=== PATIENT | female | born 1985 | race Caucasian/White ===

== ENCOUNTER 2017-11-10 14:28 | Outpatient (CLI) | payer MEDICAID ==
[2017-11-10 15:51] LABS: ALANINE AMINOTRANSFERASE 38 IU/L (13-69); ALBUMIN 3.4 g/dl (3.3-4.9); ALBUMIN/GLOBULIN RATIO 1.13; ALKALINE PHOSPHATASE 138 IU/L (42-121); ANION GAP 15 (8-16); ASPARTATE AMINO TRANSFERASE 35 IU/L (15-46); BILIRUBIN,INDIRECT 0.2 mg/dl (0-1.1); BILIRUBIN,TOTAL 0.2 mg/dl (0.2-1.3); BLOOD UREA NITROGEN 10 mg/dl (7-20); CALCIUM 9.1 mg/dl (8.4-10.2); CARBON DIOXIDE 23 mmol/L (21-31); CHLORIDE 105 mmol/L (97-110); CREATININE 0.79 mg/dl (0.44-1.00); GLUCOSE 80 mg/dl (70-220); POTASSIUM 3.9 mmol/L (3.5-5.1); SODIUM 139 mmol/L (135-144); TOTAL PROTEIN 6.4 g/dl (6.1-8.1)
== END 2017-11-10 16:50 | disposition home or self-care (01) ==
LOC: OBT 14:28 → L-D 14:31 → OBT 16:50
DX: O26.893 Other specified pregnancy related conditions, third trimester (principal); L29.8 Other pruritus; Z3A.38 38 weeks gestation of pregnancy
CPT/HCPCS: 76818; 80053

== ENCOUNTER 2017-11-12 16:00 | Inpatient (IN) | payer MEDICAID ==
[2017-11-12 16:57] LABS: ALANINE AMINOTRANSFERASE 114 IU/L (13-69); ALBUMIN 3.5 g/dl (3.3-4.9); ALKALINE PHOSPHATASE 151 IU/L (42-121); ANION GAP 14 (8-16); ASPARTATE AMINO TRANSFERASE 111 IU/L (15-46); BILIRUBIN,INDIRECT 0.3 mg/dl (0-1.1); BILIRUBIN,TOTAL 0.3 mg/dl (0.2-1.3); BLOOD UREA NITROGEN 8 mg/dl (7-20); CALCIUM 9.4 mg/dl (8.4-10.2); CARBON DIOXIDE 23 mmol/L (21-31); CHLORIDE 106 mmol/L (97-110); CREATININE 0.68 mg/dl (0.44-1.00); GLUCOSE 93 mg/dl (70-220); POTASSIUM 3.9 mmol/L (3.5-5.1); SODIUM 139 mmol/L (135-144); TOTAL PROTEIN 6.4 g/dl (6.1-8.1)
[2017-11-12] MEDS ORDERED: METHYLERGONOVINE 0.2 MG INJ IM (17:30)
[2017-11-12] MEDS ORDERED: OXYTOCIN 30 UNITS/LR 500 ML IV (17:30)
[2017-11-12] MEDS ORDERED: CARBOPROST 250 MCG INJ IM (17:30)
[2017-11-12] MEDS ORDERED: CEFAZOLIN 2 GM/50 ML (PMX) 50 ML IV (17:30)
[2017-11-12] MEDS ORDERED: MISOPROSTOL 200 MCG TAB PR (17:30)
[2017-11-12 18:21] LABS: ADD MAN DIFF? NO
[2017-11-12 18:23] LABS: WHITE BLOOD COUNT 14.3 10^3/ul (4.8-10.8)
[2017-11-12 18:23] LABS: BASOPHILS % 0.3 % (0.0-2.0); EOSINOPHILS % 0.3 % (0.0-7.0); HEMATOCRIT 34.7 % (37.0-47.0); HEMOGLOBIN 11.8 g/dl (12.0-16.0); LYMPHOCYTES # 1.9 10^3/ul (0.8-2.9); LYMPHOCYTES % 13.5 % (15.0-51.0); MEAN CORPUSCULAR HEMOGLOBIN 29.8 pg (29.0-33.0); MEAN CORPUSCULAR VOLUME 87.6 fl (82.0-101.0); MEAN PLATELET VOLUME 11.4 fl (7.4-10.4); MONOCYTES % 7.2 % (0.0-11.0); NEUTROPHIL # 11.2 10^3/ul (1.6-7.5); NEUTROPHILS % 78.1 % (39.0-77.0); PLATELET COUNT 145 10^3/UL (140-415); RED BLOOD COUNT 3.96 10^6/ul (4.20-5.40); RED CELL DISTRIBUTION WIDTH 14.3 % (11.5-14.5)
[2017-11-12 18:39] LABS: INR 0.93; PROTIME 12.6 Sec (11.9-14.9)
[2017-11-12 18:40] LABS: PARTIAL THROMBOPLASTIN TIME 31.8 Sec (25.0-35.0)
[2017-11-12 19:14] LABS: HEPATITIS B SURFACE ANTIGEN NEGATIVE (NEGATIVE)
[2017-11-13] MEDS: LACTATED RINGER'S 1,000 ML IV ×3 (00:38→23:27)
[2017-11-13] MEDS: DEXTROSE 5%-LR 1,000 ML IV ×2 (08:20→17:22)
[2017-11-13 11:35] LABS: URIC ACID 7.2 mg/dl (3.1-7.9)
[2017-11-13] MEDS: ONDANSETRON 4 MG INJ IV (18:24)
[2017-11-13] MEDS: CITRIC ACID/SODIUM CITRATE 15 ML CUP PO (18:25)
[2017-11-13] MEDS ORDERED: METOCLOPRAMIDE 10 MG INJ (18:37)
[2017-11-13] MEDS ORDERED: PHENYLephrine (100 MCG/ML) 5ML SYG (18:37)
[2017-11-13] MEDS ORDERED: OXYTOCIN 10 UNIT INJ (18:37)
[2017-11-13] MEDS ORDERED: morphine SULFATE/PF (10 MG/10 ML) INJ (18:37)
[2017-11-13] MEDS ORDERED: FENTAnyl 50 MCG/ML VIAL (18:37)
[2017-11-13 18:57] LABS: RAPID PLASMA REAGIN NONREACTIVE (NR)
[2017-11-13] MEDS ORDERED: ALBUTEROL 0.083% (NEB) 2.5 MG/3 ML AMP HHN (22:00)
[2017-11-13] MEDS ORDERED: MIDAZOLAM 1 MG/ML 2 ML INJ IV (22:00)
[2017-11-13] MEDS ORDERED: OXYCODONE/ACETAMINOPHEN (5/325) TAB PO ×2 (22:00)
[2017-11-13] MEDS ORDERED: HYDROmorphONE (0.2 MG/ML) 10ML SYG IV ×3 (22:00)
[2017-11-13] MEDS ORDERED: hydrALAzine 20 MG INJ IV (22:00)
[2017-11-13] MEDS ORDERED: LABETALOL HCL 20MG INJ IV (22:00)
[2017-11-13] MEDS ORDERED: ONDANSETRON 4 MG INJ IV ×2 (22:00)
[2017-11-13] MEDS ORDERED: EPHEDrine SULFATE 50 MG/5 ML SYG IV (22:00)
[2017-11-13] MEDS ORDERED: DIPHENHYDRAMINE 50 MG INJ IV (22:00)
[2017-11-13] MEDS ORDERED: morphine 2 MG INJ IV ×2 (22:00)
[2017-11-13] MEDS ORDERED: NALOXONE (0.4 MG/ML) INJ IV (22:00)
[2017-11-13] MEDS ORDERED: FENTAnyl 50 MCG/ML VIAL IV ×3 (22:00)
[2017-11-13] MEDS ORDERED: IPRATROPIUM (NEB) 0.5 MG/2.5 ML AMP HHN (22:00)
[2017-11-13] MEDS ORDERED: MEPERIDINE 25 MG INJ IV (22:00)
[2017-11-13] MEDS ORDERED: NALBUPHINE HCL (10 MG/1 ML) INJ IV (22:00)
[2017-11-13] MEDS ORDERED: TRIMETHOBENZAMIDE 100 MG/ML VIAL IM ×2 (22:00)
[2017-11-13] MEDS: OXYTOCIN 30 UNITS/LR 500 ML IV (22:17)
[2017-11-13] MEDS: KETOROLAC 30 MG INJ IV (22:35)
[2017-11-13] MEDS ORDERED: CARBOPROST 250 MCG INJ IM (23:30)
[2017-11-13] MEDS ORDERED: LANOLIN 7 GM TUBE TOP (23:30)
[2017-11-13] MEDS ORDERED: OXYTOCIN 30 UNITS/LR 500 ML IV (23:30)
[2017-11-13] MEDS ORDERED: METHYLERGONOVINE 0.2 MG INJ IM (23:30)
[2017-11-13] MEDS ORDERED: MISOPROSTOL 200 MCG TAB PR (23:30)
[2017-11-14] MEDS: OXYTOCIN 30 UNITS/LR 500 ML IV (02:53)
[2017-11-14 08:27] LABS: ADD MAN DIFF? NO
[2017-11-14 08:36] LABS: ABNORMAL IP MESSAGE 1; BASOPHILS % 0.2 % (0.0-2.0); EOSINOPHILS % 0.2 % (0.0-7.0); HEMATOCRIT 30.1 % (37.0-47.0); HEMOGLOBIN 10.4 g/dl (12.0-16.0); LYMPHOCYTES # 1.2 10^3/ul (0.8-2.9); LYMPHOCYTES % 9.6 % (15.0-51.0); MEAN CORPUSCULAR HEMOGLOBIN 30.2 pg (29.0-33.0); MEAN CORPUSCULAR HGB CONC 34.6 g/dl (32.0-37.0); MEAN CORPUSCULAR VOLUME 87.5 fl (82.0-101.0); MEAN PLATELET VOLUME 10.8 fl (7.4-10.4); MONOCYTE # 0.9 10^3/ul (0.3-0.9); MONOCYTES % 7.1 % (0.0-11.0); NEUTROPHILS % 82.2 % (39.0-77.0); RED BLOOD COUNT 3.44 10^6/ul (4.20-5.40); RED CELL DISTRIBUTION WIDTH 14.4 % (11.5-14.5)
[2017-11-14 08:36] LABS: WHITE BLOOD COUNT 12.2 10^3/ul (4.8-10.8)
[2017-11-14 08:56] LABS: PLATELET COUNT 98 10^3/UL (140-415); POSITIVE DIFF @See below
[2017-11-14] MEDS: LACTATED RINGER'S 1,000 ML IV ×3 (09:39→23:07)
[2017-11-14] MEDS: SENNA/DOCUSATE NA (8.6MG/50MG) TAB PO ×2 (09:39→22:20)
[2017-11-14] MEDS: DIPHENHYDRAMINE 50 MG INJ IV (12:20)
[2017-11-14] MEDS: KETOROLAC 30 MG INJ IV (13:47)
[2017-11-14] MEDS ORDERED: OXYCODONE/ACETAMINOPHEN (5/325) TAB PO (22:00)
[2017-11-14] MEDS: IBUPROFEN 800 MG TAB PO (22:20)
[2017-11-15] MEDS: IBUPROFEN 800 MG TAB PO ×3 (05:32→22:25)
[2017-11-15] MEDS: LACTATED RINGER'S 1,000 ML IV ×2 (07:27→21:41)
[2017-11-15] MEDS: SENNA/DOCUSATE NA (8.6MG/50MG) TAB PO ×2 (09:56→20:39)
[2017-11-15] MEDS: OXYCODONE/ACETAMINOPHEN (5/325) TAB PO (20:39)
[2017-11-15] MEDS: INFLUENZA VIRUS VACCINE 0.5 ML SYG IM* (23:55)
[2017-11-16] MEDS: IBUPROFEN 800 MG TAB PO ×2 (06:13→14:05)
[2017-11-16] MEDS: LACTATED RINGER'S 1,000 ML IV ×2 (07:27→15:27)
[2017-11-16] MEDS: SENNA/DOCUSATE NA (8.6MG/50MG) TAB PO (09:57)
[2017-11-16] MEDS: OXYCODONE/ACETAMINOPHEN (5/325) TAB PO (12:38)
[2017-11-16] MEDS: DIPHTH/TET/ACEL PERTUSS (ADULT) 0.5 ML VIAL IM* (12:46)
== END 2017-11-16 18:15 | disposition home or self-care (01) | DRG 765 ==
LOC: OBT 16:00 → L-D 11-13 18:26 → PP1 11-14 08:12 → L-D 16:01 → PP1 11-13 23:42 → OBT 17:12 → L-D 17:12
PROC: 10D00Z1 Extraction of Products of Conception, Low, Open Approach (ICD-10-PCS; principal; 2017-11-13 19:00)
PROC: 0UB70ZZ Excision of Bilateral Fallopian Tubes, Open Approach (ICD-10-PCS; 2017-11-13 19:00)
DX: O26.62 Liver and biliary tract disorders in childbirth (principal); K83.1 Obstruction of bile duct; O34.211 Maternal care for low transverse scar from previous cesarean delivery; O24.429 Gestational diabetes mellitus in childbirth, unspecified control; Z3A.38 38 weeks gestation of pregnancy; Z37.0 Single live birth; Z30.2 Encounter for sterilization
CPT/HCPCS: 76818; 80053; 82962; 84560; 85025; 85610; 85730; 86592; 86850; 86900; 86901; 86920; 87340; 88302; 90686; 90715; 99464